=== PATIENT | female | born 1950 | race Caucasian/White ===

== ENCOUNTER → 2018-11-19 | Outpatient (CLI) | payer OTHER, MEDICARE ==
[~2018-11-19] MED LIST: FLONASE 0.05%50 MCG; OMEPRAZOLE40 MG; ZANTAC 150MG T150 MG
== END ==
LOC: M.RAD 08:58
DX: Z12.31 Encounter for screening mammogram for malignant neoplasm of breast (principal)

== ENCOUNTER → 2021-01-29 | Outpatient (CLI) | payer OTHER | LOC: M.RAD 10:56 | PROVIDERS: ATTEND Internal Medicine | DX: Z12.31 Encounter for screening mammogram for malignant neoplasm of breast (principal); N64.89 Other specified disorders of breast ==